=== PATIENT | female | born 1995 | race Two or more races ===

== ENCOUNTER 2019-04-24 04:31 | Emergency (ER) | payer MEDICAID ==
[~2019-04-24] VITALS: Ht 170.2 cm; Wt 65.8 kg
--- NOTE | 2019-04-24 04:34 | NUR ---
TO BED 3 BIB PARAMEDICS C/O DIZZINESS, ABD PAIN WITH NAUSEA X 1 DAY. PT AAOX4 NO ACUTE DISTRESS NOTED, RESP EVEN AND UNLABORED. PENDING ER MD CABRERA.
--- NOTE | 2019-04-24 04:35 | NUR ---
SUELLEN DAWSON AT BEDSIDE TO DEBORAH HURTADO.
[2019-04-24] MEDS ORDERED: ONDANSETRON HCL/PF 4 MG/2 ML VIAL ONE (04:57)
[2019-04-24] MEDS ORDERED: ONDANSETRON HCL/PF - ER 4 MG/2 ML VIAL IV ONE (05:00)
[2019-04-24] MEDS ORDERED: MECLIZINE HCL 25 MG TABLET PO ONE (05:00)
[2019-04-24] MEDS ORDERED: IV NS 0.9% 1,000 ML BAG IV ONE (05:00)
[2019-04-24 05:07] LABS: BASOPHILS % (AUTO) 0.5 % (0.0-2.0); EOSINOPHILS % (AUTO) 1.4 % (0.0-6.0); HEMATOCRIT 41 % (33-45); HEMOGLOBIN 14.3 g/dL (11.5-14.8); LYMPHOCYTES # (AUTO) 4.2 /CMM (0.8-4.8); LYMPHOCYTES % (AUTO) 49.2 % (20.0-44.0); MEAN CORPUSCULAR HGB CONC 35 g/dl (31.0-36.0); MEAN CORPUSCULAR VOLUME 88 fL (82-100); MONOCYTES # (AUTO) 0.6 /CMM (0.1-1.30); MONOCYTES % (AUTO) 7.4 % (2.0-12.0); NEUTROPHILS # (AUTO) 3.5 /CMM (1.8-8.9); NEUTROPHILS % (AUTO) 41.5 % (43.0-81.0); PLATELET COUNT (AUTO) 263 /CMM (150-450); RED BLOOD CELL COUNT(AUTO) 4.63 MIL/uL (4.0-5.2); WHITE BLOOD COUNT (AUTO) 8.5 K/uL (4.3-11.0)
[2019-04-24] MEDS ORDERED: MECLIZINE HCL 25 MG TABLET ONE (05:10)
[2019-04-24 05:20] LABS: ALBUMIN 4.1 g/dL (3.4-5.0); BILIRUBIN,DIRECT 0.2 mg/dL (0.0-0.2); BILIRUBIN,TOTAL 0.7 mg/dL (0.2-1.0); CALCIUM, SERUM 8.9 mg/dL (8.5-10.1); CREATININE 0.9 mg/dL (0.6-1.3); POTASSIUM 3.3 mmol/L (3.5-5.1); TOTAL PROTEIN, SERUM 7.2 g/dL (6.4-8.2)
--- NOTE | 2019-04-24 05:26 | NUR ---
SUELLEN DAWSON AT BEDSIDE TO RE-EVAL PT.
--- NOTE | 2019-04-24 05:38 | NUR ---
URINE SAMPLE COLLECTED AND SENT TO LAB.
[2019-04-24 05:45] LABS: BILIRUBIN,URINE NEGATIVE (NEGATIVE); BLOOD, URINE NEGATIVE Ery/uL (NEGATIVE); COLOR,URINE YELLOW (YELLOW); KETONES,URINE NEGATIVE (NEGATIVE); LEUKOCYTE ESTERASE ,URINE NEGATIVE (NEGATIVE); NITRITE, URINE NEGATIVE (NEGATIVE); PH,URINE 6.5 (5.0-8.0); PROTEIN,URINE NEGATIVE (NEGATIVE); UGLUCOSE NEGATIVE (NEGATIVE); UROBILINOGEN,URINE 0.2 EU/dL (0.2)
[2019-04-24 05:56] LABS: APPEARANCE,URINE CLEAR (CLEAR)
[2019-04-24] MEDS ORDERED: POTASSIUM CHLORIDE 20 MEQ TAB.PRT.SR PO ONE ×2 (06:00)
--- NOTE | 2019-04-24 06:00 | NUR ---
IV removed. Catheter intact and site benign. Pressure and 4x4 applied to site. No bleeding noted.
--- NOTE | 2019-04-24 06:06 | NUR ---
Patient discharged to home in stable condition. Written and verbal after care instructions given. Patient verbalizes understanding of instruction.
[2019-04-24 06:09] VITALS: BP 118/78
== END 2019-04-24 06:09 | disposition home or self-care (01) ==
LOC: ER 04:37
DX: R42 Dizziness and giddiness (principal); E87.6 Hypokalemia; K59.00 Constipation, unspecified; E86.0 Dehydration
CPT/HCPCS: 36415; 80048; 80076; 81001; 83690; 84702; 85025; 96361; 96374; 99283; J2405; J7030; J8597; 81000-TC

== ENCOUNTER 2021-03-05 21:34 | Emergency (ER) | payer MEDICAID ==
[~2021-03-05] VITALS: Ht 167.6 cm; Wt 61.2 kg
[2021-03-05 21:51] VITALS: BP 129/74
--- NOTE | 2021-03-05 22:00 | NUR ---
PATIENT BIBS FOR C/O "I HAD SEIZURE FOR THE FIRST TIME. I WAS AWAKE. I WAS SHAKING, CRYING AND HAVING A SQUEEZING PAIN ON BACK OF MY HAED AN HOUR AGO". PATIENT IS A/O X 4, RR EVEN AND UNLABORED, NO SOB NOTED. PATIENT CONNECTED TO MONITOR.
--- NOTE | 2021-03-05 22:33 | NUR ---
PT IS MEDICALLY STABL EFOR D/C. Patient discharged to home in stable condition. Written and verbal after care instructions given. Patient verbalizes understanding of instruction.
== END 2021-03-05 22:35 | disposition home or self-care (01) ==
LOC: ER 21:37
DX: F41.0 Panic disorder [episodic paroxysmal anxiety] (principal)